=== PATIENT | male | born 1955 | race Caucasian/White ===

== ENCOUNTER 2017-08-25 09:06 | Day surgery (SDC) | payer OTHER ==
--- NOTE | 2017-08-25 07:13 | PDHPUP ---
History & Physical Update H&P update statement: This history and physical update is based on an assessment of the patient which was completed after admission or registration (within 24 hours), but prior to the surgery/procedure. H&P update: H&P reviewed & patient examined, no change in patient's condition since H&P completed
[~2017-08-25 09:06] MED LIST: ACETAMINOPHEN 500 MG TAB PO ONE; BUPIVACAINE/EPI 0.5% 30 ML SDV ONE; ceFAZolin 2 GM/SWFI 2 GM/20 ML SYR IVP ONE
[2017-08-25] MEDS ORDERED: LR 1,000 ML IV ONE (09:16)
[2017-08-25] MEDS ORDERED: LIDOCAINE 1% 2 ML INJ ID PRN (09:16)
[2017-08-25] MEDS ORDERED: ceFAZolin 2 GM/SWFI 20 ML SYR IVP ONE (09:53)
[2017-08-25] MEDS ORDERED: ACETAMINOPHEN 500 MG TAB ONE (09:53)
--- NOTE | 2017-08-25 10:04 | PDGENHP ---
History & Physical Chief Complaint: r shoulder pain and weakness History of Present Illness: r shoulder pain and weakness after recent fall Pertinent Past, Social, Family History: N/A Relevant Physical Exam: perrl. cta. rrr. soft and NT. RUE - weak to SS/IS. MRI large RCT Cardiorespiratory Assessment: cta. rrr
[2017-08-25] MEDS ORDERED: MIDAZOLAM 2 MG/2 ML VIAL IVP ONE ×2 (10:33→13:13)
--- NOTE | 2017-08-25 10:34 | PDANEPAE ---
ANE Past Medical History - Cardiovascular History Hx Hypertension: Yes Hx Arrhythmias: No Hx Chest Pain: No Hx Coronary Artery / Peripheral Vascular Disease: No Hx CHF / Valvular Disease: No Hx Palpitations: No - Pulmonary History Hx COPD: No Hx Asthma/Reactive Airway Disease: No Hx Recent Upper Respiratory Infection: No Hx Oxygen in Use at Home: No Hx Sleep Apnea: Yes Sleep Apnea Screening Result - Last Documented: Positive - Neurologic History Hx Cerebrovascular Accident: No Hx Seizures: No Hx Dementia: No - Endocrine History Hx Diabetes: No Hypothyroid: No Hyperthyroid: No Obesity: no - Renal History Hx Renal Disorders: No - Liver History Hx Hepatic Disorders: No - Neurological & Psychiatric Hx Hx Neurological and Psychiatric Disorders: No - Cancer History Hx Cancer: No - Congenital Disorder History Hx Congenital Disorders: No - GI History Hx Gastrointestinal Disorders: No - Other Health History Other Health History: none - Chronic Pain History Chronic Pain: Yes (right hand) - Surgical History Prior Surgeries: none ANE Review of Systems Review of Systems: - Exercise capacity METS (RN): 5 METS ANE Patient History - Allergies Allergies/Adverse Reactions: No Known Allergies Allergy (Verified 08/17/17 11:14) - Home Medications Home Medications: Lisinopril 08/17/17 [Last Taken 08/25/17] Simvastatin 08/17/17 [Last Taken 08/25/17] - NPO status NPO Since - Liquids (Date): 08/25/17 NPO Since - Liquids (Time): 06:30 NPO Since - Solids (Date): 08/24/17 NPO Since - Solids (Time): 19:00 - Smoking Hx Smoking Status: Former smoker - Family Anes Hx Family Hx Anesthesia Complications: none ANE Labs/Vital Signs - Vital Signs Blood Pressure: 149/76 Heart Rate: 57 Respiratory Rate: 18 O2 Sat (%): 97 Height: 182.88 cm Weight: 90.718 kg ANE Physical Exam - Airway Neck exam: decreased ROM, spinal fusion Mallampati Score: Class 1 Mouth exam: normal dental/mouth exam - Pulmonary Pulmonary: no respiratory distress - Cardiovascular Cardiovascular: regular rate and rhythym - ASA Status ASA Status: II ANE Anesthesia Plan Anesthesia Plan: general endotracheal anesthesia Regional Anesthesia: interscalene BP NB
[2017-08-25] MEDS ORDERED: MIDAZOLAM 2 MG/2 ML VIAL ONE (10:38)
[2017-08-25] MEDS ORDERED: fentaNYL 250 MCG/5 ML INJ ONE (10:40)
[2017-08-25] MEDS ORDERED: PROPOFOL/EMULSION 500 MG/50 ML BOTTLE IV ONE (10:40)
[2017-08-25] MEDS ORDERED: ROPIVACAINE HCL 150 MG/30 ML INJ ONE (10:43)
[2017-08-25] MEDS ORDERED: LIDOCAINE 2% 5 ML SDV ONE (10:44)
[2017-08-25] MEDS ORDERED: CALCIUM CHLORIDE 1 GM/10 ML INJ ONE (11:14)
[2017-08-25] MEDS ORDERED: THROMBIN (BOVINE) 5,000 UNIT VIAL TP ONE (11:14)
[2017-08-25] MEDS ORDERED: ONDANSETRON 4 MG/2 ML VIAL ONE (12:43)
[2017-08-25] MEDS ORDERED: DEXAMETHASONE 4 MG/ML VIAL ONE (12:43)
[2017-08-25] MEDS ORDERED: ACETAMINOPHEN 325 MG TAB PO PRN (12:52)
[2017-08-25] MEDS ORDERED: ONDANSETRON 4 MG/2 ML VIAL IVP PRN (12:52)
[2017-08-25] MEDS ORDERED: OXYCODONE/APAP 5/325 TAB PO PRN (12:52)
--- NOTE | 2017-08-25 12:53 | POSTOPPROG ---
Post Op Note Date of Operation: 08/25/17 Surgeon: Vicky Lacey Career Development Specialist: coltrain Anesthesia: GET(General Endotracheal), Other (Specify) Pre-op Diagnosis: r shoulder impingememnt with rcr Procedure: r shoulder scope with sad,ac resection, and rcrx3 Inf/Abcess present in the surg proc area at time of surgery?: No Depth: Deep Incisional (Fascial) EBL: 100-500
--- NOTE | 2017-08-25 13:14 | POSTANESTH ---
Post Anesthetic Evaluation Cardiovascular Status: Normal, Stable Respiratory Status: Normal, Stable Level of Consciousness/Mental Status: Can Participate in Eval Pain Control: Adequate, Prn Tx Ordered Nausea/Vomiting Control: Adequate, Prn Tx Ordered Complications Possibly Related to Anesthesia: None Noted
[2017-08-25 13:21] VITALS: PULSE 75
[2017-08-25 13:35] VITALS: RESP 15
--- NOTE | 2017-08-25 14:20 | GOP ---
[f rep st] OPERATIVE REPORT DATE OF OPERATION: 08/25/2017 SURGEON: Vicky Lacey MD GLUING MACHINE FEEDER: Kuldeep Pelletier, CSFA, LSA, whose presence was medically necessary. ANESTHESIA: By endotracheal intubation plus scalene nerve block per surgeon's request. PREOPERATIVE DIAGNOSIS: Right shoulder impingement syndrome with rotator cuff tear and labral tear. POSTOPERATIVE DIAGNOSIS: Right shoulder impingement syndrome with rotator cuff tear and labral tear. PROCEDURE PERFORMED: Right shoulder arthroscopy with rotator cuff repair x3; subacromial decompressi on, arthroscopic AC resection, debridement of rotator cuff, labrum and biceps anchor. FINDINGS: DESCRIPTION OF PROCEDURE: Patient brought to the operating room and, after the right side had been i dentified as the correct side by the patient, nurse and position once in the operating room, he was g iven a scalene block on the right side and then placed under general anesthesia using endotracheal in tubation. Once asleep, he was placed in a beach chair position with the right upper extremity steril shelli prepped and draped in the usual fashion using GSI solution. Once prepped and draped, and incision was made over the posterolateral corner of the acromion with the camera introduced without difficult y. Inspection of the joint revealed a very large rotator cuff tear, an intact biceps that appeared to be tethered along the biceps groove. He did have a large flap tear of the superior and posterior por tion of the labrum and fraying anteriorly. Therefore, using an in to out technique, an anterior paty l was made superolateral to the coracoid process with 6 x 75 mm threaded cannula placed through the a nterior portal and a 3.5 mm smooth shaver used to debride and debulk tears of the superior and terminal press operator ior portions of the labrum as well as the frayed portions of the rotator cuff. Once completed, all i nstruments were removed from the shoulder joint and reintroduced through the same portal sites in the subacromial space. A third incision was made 3 cm lateral to the acromial process in line with the posterior cortex of the clavicle with the camera. With the camera switched to the lateral portal, an d alternating using arthroscopic Bovie tip and a shaver, was used to debride and debulk the soft tiss ue on the undersurface of the acromion, the abundant amount of bursal tissue as well as the thick sca r tissue associated in a layer above the actual rotator cuff tear itself. Once debrided, he was noted to have a short, sharp anterior spur and this was all removed using a large subacromial bur until ac hieving a flat ceiling. Attention was turned to the distal clavicle that was also noted to have a dipak rt, sharp inferior spur and this was also removed using a combination of shaver and bur. Once comple berkley, the camera switched back to the posterior portal. The greater tuberosity was eburnated in order to gain exposed bone. Then, #2 FiberWire was woven into the anterior and posterior portions of the rotator cuff tear and attached onto the area around the greater tuberosity associated with the eburna berkley bone. The mid section then had suture woven into its anterior and posterior portions and this wa s also brought over onto the greater tuberosity and held in place using a third anchor. Once complete d, the camera switched back to the lateral portal. An 18-gauge needle was used to identify and isola te the posterior portion of the AC joint. Incision was made directly over the AC joint and, using a c ombination of shaver, a bur was used to remove bone from the either side of the AC joint on the acrom ion and the distal clavicle. Once achieving adequate space, the camera was introduced into the AC ann marie int and a probe brought through the lateral portal in order to show an adequate amount of bone remove d. Once finished, all instruments were removed from the subacromial space and the 4 portal sites were closed using 3-0 nylon suture in a [id number] type stitch. Plasma gel was then injected into t he subacromial space. The wound was then dressed with Xeroform, 4 x 4, and Tegaderm. He was complet shelli undraped in the operating room, had a shoulder immobilizer placed on the right upper extremity. He was then woken up, extubated, transferred onto a bed, and sent to recovery room in good condition. INDICATION FOR SURGERY: This is a 62-year-old male with a several week history of weakness and pain into the right shoulder after a recent fall. MRI reveals a massive rotator cuff tear as well as ante rior acromial spur, AC osteoarthritis and labral tearing. He wishes to have surgery in order to reso lve the problem. /[id number]/MODL
[2017-08-25 15:24] VITALS: TEMP 97.7
[2017-08-25 15:26] VITALS: BP 120/67; O2SAT 94
== END 2017-08-25 15:12 | disposition home or self-care (01) ==
LOC: FSGY 09:06
PROVIDERS: ATTEND Orthopaedic Surgery
PROC: 0MN14ZZ Release Right Shoulder Bursa and Ligament, Percutaneous Endoscopic Approach (ICD-10-PCS; principal; 2017-08-25 10:30)
PROC: 0MB14ZZ Excision of Right Shoulder Bursa and Ligament, Percutaneous Endoscopic Approach (ICD-10-PCS; principal; 2017-08-25 10:30)
PROC: 0LQ14ZZ Repair Right Shoulder Tendon, Percutaneous Endoscopic Approach (ICD-10-PCS; principal; 2017-08-25 10:30)
DX: M25.811 Other specified joint disorders, right shoulder (principal); M75.101 Unspecified rotator cuff tear or rupture of right shoulder, not specified as traumatic; S43.491A Other sprain of right shoulder joint, initial encounter
CPT/HCPCS: C1713; J0171; J0690; J1100; J2250; J2405; J2704; J2795; J3010